=== PATIENT | female | born 1975 | race Hispanic/Latino ===

== ENCOUNTER 2017-05-10 22:26 | Emergency (ER) | payer SELFPAY ==
[2017-05-10 22:57] LABS: Bilirubin Negative (Negative); Blood, Urine Negative (Negative); Glucose, Urine (Dipstick) Negative (Negative); Ketone, Urine Negative (Negative); Nitrite Negative (Negative); Protein, Urine (Dipstick) Negative (Neg-Trace)
[2017-05-10 22:59] LABS: Bacteria/HPF 1+ HPF (None Seen); Hyaline Casts/LPF 0-3 HYALINE CAST LPF (0-3 Hyaline)
[2017-05-10 23:11] LABS: #Basophils 0.1 thou/uL (0.0-0.2); #Eosinphils 0.1 thou/uL (0.0-0.7); #Lymphocytes 3.5 thou/uL (1.20-3.40); #Monocytes 0.6 thou/uL (0.11-0.59); #Neutrophils 6.1 thou/uL (1.40-6.50); %Basophils 0.5 % (0.0-1.0); %Eosinophils 1.3 % (0.0-10.0); %Lymphocytes 33.5 % (21.0-51.0); %Monocytes 5.7 % (0.0-10.0); Hematocrit 35.9 % (36.0-47.0); Mean Platelet Volume 6.8 fL (7.4-10.4); White Blood Cell (WBC) Count 10.4 thou/uL (4.8-10.8)
[2017-05-10 23:33] LABS: ALT (SGPT) 8 U/L (8-55); AST (SGOT) 11 U/L (5-34); Alkaline Phosphatase 66 U/L (40-150); Anion Gap 13 mmol/L (10-20); BUN (Urea Nitrogen) 15 mg/dL (7.0-18.7); Bilirubin, Total Less than 0.2 mg/dL (0.2-1.2); Calc. Creatinine Clearance 0 mL/min (70-130); Calcium 9.1 mg/dL (7.8-10.44); Carbon Dioxide 25 mmol/L (22-29); Chloride 106 mmol/L (98-107); Estimated GFR-MDRD 78; Lipase 21 U/L (8-78); Protein, Total 6.7 g/dL (6.0-8.3)
[2017-05-10] MEDS ORDERED: HYDROcodone/Acetaminophen 5/325 mg Tablet ONE (23:52)
[2017-05-11] MEDS ORDERED: Ciprofloxacin 500 MG TAB ONE (04:06)
--- NOTE | 2017-05-11 08:01 | CT ---
PRELIMINARY REPORT/[facility]/EMERGENCY AFTER HOURS PROCEDURE: EXAM: CT Abdomen and Pelvis With Intravenous Contrast CLINICAL HISTORY: 42 years old, female; Pain; Abdominal pain; Generalized TECHNIQUE: Axial computed tomography images of the abdomen and pelvis with intravenous contrast. Coronal reformatted images were created and reviewed. CONTRAST: 70 mL of ISOVUE administered intravenously. COMPARISON: No relevant prior studies available. FINDINGS: The lung bases are clear. The gallbladder is partially contracted. No visible gallstones by CT. No biliary tree dilation. Unremarkable appearance of the liver, spleen, kidneys, adrenal glands, and pancreas. Possibility of slightly thickened mucosa/wall in the distal antrum of the stomach. This is a nonspec ific appearance, and could be transient on CT, but could also represent evidence for gastritis or pe ptic ulcer disease. Please correlate clinically. No free air, ascites, or bowel distention. No evidence for abdominal aortic aneurysm. No retroperitoneal adenopathy. CT pelvis: The appendix is visualized and appears normal. There are no CT findings to strongly suggest diverticulitis. No abnormal mass or fluid collection in the pelvis. IMPRESSION: No free air or bowel distention. Normal appendix. Possible thickened mucosa/wall in the distal stomach, see above discussion. No diverticulitis. Other findings discussed above. Thank you for allowing us to participate in the care of your patient. Dictated and Authenticated by: Leif Hays MD 05/11/2017 2:32 AM Central Time ([place] \T\ [place]) FINAL REPORT CT ABDOMEN WITH ORAL AND IV CONTRAST: I agree with the preliminary report given by Dr. Leif Hays of [facility]. POS: [facility]
--- NOTE | 2017-05-11 08:19 | ULT ---
PRELIMINARY REPORT/[facility]/EMERGENCY AFTER HOURS PROCEDURE: EXAM: US Pelvis Complete CLINICAL HISTORY: 42 years old, female; Pain and signs and symptoms; Menstruation abnormalities and other: Llq pain; E xcessive menstruation; With regular cycle; Patient HX: Llq pain x 2-3 wks, nausea, dissiness, heavy periods for past 4 years. TECHNIQUE: Real-time pelvic ultrasound (complete) with image documentation. COMPARISON: No relevant prior studies available. FINDINGS: The uterus appears mildly prominent in size, measuring 10.3 cm in length. The myometrium appears somewhat inhomogeneous. Ill-defined area in the fundus measures up to 5-6 cm in diameter. This could represent one or several poorly defined fibroids, although welldefined/discr ete masses are not identified with ultrasound. MRI could further evaluate for possibility of fibroid s, as clinically needed. There is no intrauterine fluid. Endometrial thickness is 4.6 mm. There is no free pelvic fluid. The right ovary is not definitely visualized. The left ovary appears unremarkable. Blood flow detected in the left ovary. The urinary bladder was not completely evaluated/imaged at this time. IMPRESSION: Mildly enlarged uterus. Inhomogeneous myometrium, difficult to exclude uterine fibroids, see discussion. Unremarkable left ovary. Right ovary not visualized. Other details discussed above. EXAM: US Pelvis, Transvaginal CLINICAL HISTORY: 42 years old, female; Pain and signs and symptoms; Menstruation abnormalities and other: Llq pain; E xcessive menstruation; With regular cycle; Patient HX: Llq pain x 2-3 wks, nausea, dissiness, heavy periods for past 4 years. TECHNIQUE: Real-time transvaginal pelvic ultrasound (complete) with image documentation. Transvaginal imaging w as used for better evaluation of the endometrium and adnexa. COMPARISON: No relevant prior studies available. FINDINGS: The uterus appears mildly prominent in size, measuring 10.3 cm in length. The myometrium appears somewhat inhomogeneous. Ill-defined area in the fundus measures up to 5-6 cm in diameter. This could represent one or several poorly defined fibroids, although welldefined/discr ete masses are not identified with ultrasound. MRI could further evaluate for possibility of fibroid s, as clinically needed. There is no intrauterine fluid. Endometrial thickness is 4.6 mm. There is no free pelvic fluid. The right ovary is not definitely visualized. The left ovary appears unremarkable. Blood flow detected in the left ovary. The urinary bladder was not completely evaluated/imaged at this time. Endovaginal scanning provided better visualization/evaluation of the endometrium and myometrium find ings as discussed above. IMPRESSION: Mildly enlarged uterus. Inhomogeneous myometrium, difficult to exclude uterine fibroids, see discussion. Unremarkable left ovary. Right ovary not visualized. Other details discussed above. Thank you for allowing us to participate in the care of your patient. Dictated and Authenticated by: Leif Hays MD 05/11/2017 3:07 AM Central Time ([place] \T\ [place]) FINAL REPORT PELVIC ULTRASOUND: The uterus is mildly heterogeneous. The endometrial stripe appears normal. I am in agreement with the preliminary report. POS: [facility]
== END 2017-05-11 04:29 | disposition home or self-care (01) ==
LOC: ERS 22:26
DX: N39.0 Urinary tract infection, site not specified (principal); F17.210 Nicotine dependence, cigarettes, uncomplicated; I10 Essential (primary) hypertension; Z79.899 Other long term (current) drug therapy
CPT/HCPCS: 36415; 74177; 76856; 80053; 81003; 81015; 81025; 83690; 84703; 85025; 87086

== ENCOUNTER 2018-08-30 09:29 | Emergency (ER) | payer SELFPAY ==
[2018-08-30 09:48] LABS: #Basophils 0.1 thou/uL (0.0-0.2); #Eosinphils 0.1 thou/uL (0.0-0.7); #Lymphocytes 1.9 thou/uL (1.20-3.40); #Monocytes 0.5 thou/uL (0.11-0.59); #Neutrophils 4.5 thou/uL (1.40-6.50); %Basophils 0.9 % (0.0-1.0); %Eosinophils 1.5 % (0.0-10.0); %Lymphocytes 27.5 % (21.0-51.0); %Monocytes 6.4 % (0.0-10.0); %Neutrophils 63.7 % (42.0-75.0); Hemoglobin 13.6 g/dL (12.0-16.0); Mean Corpuscular HGB CONC 33.8 g/dL (32.0-36.0); Mean Corpuscular Hemoglobin 32.1 pg (27.0-31.0); Mean Corpuscular Volume 94.8 fL (78.0-98.0); Mean Platelet Volume 6.6 fL (7.4-10.4); Platelet Count 287 thou/uL (130-400); RBC Distribution Width 12.5 % (11.5-14.5); Red Blood Cell (RBC) Count 4.25 mill/uL (4.20-5.40); White Blood Cell (WBC) Count 7.1 thou/uL (4.8-10.8)
[2018-08-30 10:11] LABS: ALT (SGPT) 27 U/L (8-55); AST (SGOT) 16 U/L (5-34); Albumin 4.5 g/dL (3.5-5.0); Alkaline Phosphatase 82 U/L (40-150); Anion Gap 10 mmol/L (10-20); BUN (Urea Nitrogen) 12 mg/dL (7.0-18.7); Bilirubin, Total 0.4 mg/dL (0.2-1.2); Calc. Creatinine Clearance 0 mL/min (70-130); Calcium 9.9 mg/dL (7.8-10.44); Carbon Dioxide 29 mmol/L (22-29); Chloride 105 mmol/L (98-107); Estimated GFR-MDRD 89; Globulin 2.6 g/dL (2.4-3.5); Glucose 118 mg/dL (70-105); Protein, Total 7.1 g/dL (6.0-8.3); Sodium 140 mmol/L (136-145)
[2018-08-30 11:03] LABS: BHCG - Serum Negative (NEGATIVE); Pregs Control Background? CLEAR/WHITE (CLR/WHITE); Pregs Control Bar Appear? YES (CONTROL BAR)
--- NOTE | 2018-08-30 11:08 | RAD ---
2 VIEWS CHEST: Date: 08/30/18 COMPARISON: None. HISTORY: Chest pain. FINDINGS: Two views of the chest show normal sized cardiomediastinal silhouette. Linear atelectasis is seen in the left lung base. There is no evidence of consolidation, mass, or pleural effusion. The bones are u nremarkable. IMPRESSION: Left basilar atelectasis. POS: [facility]
== END 2018-08-30 11:47 | disposition home or self-care (01) ==
LOC: ERS 09:29
DX: R07.89 Other chest pain (principal); I10 Essential (primary) hypertension; F17.210 Nicotine dependence, cigarettes, uncomplicated; Z79.899 Other long term (current) drug therapy
CPT/HCPCS: 36415; 71046; 80053; 84484; 84703; 85025; 93005

== ENCOUNTER 2023-09-20 02:07 | Emergency (ER) | payer SELFPAY ==
[2023-09-20] MEDS ORDERED: Acetaminophen 500 MG TAB ONE (03:15)
== END 2023-09-20 04:56 | disposition home or self-care (01) ==
LOC: ERS 02:07
DX: I10 Essential (primary) hypertension (principal); E03.9 Hypothyroidism, unspecified; F17.210 Nicotine dependence, cigarettes, uncomplicated; Z79.899 Other long term (current) drug therapy
CPT/HCPCS: 70450